=== PATIENT | female | born 1935 | race Caucasian/White ===

== ENCOUNTER 2017-05-29 18:52 | Emergency (ER) | payer MEDICARE, MEDICAID, SELFPAY ==
[2017-05-29 18:53] VITALS: BP 176/87; PULSE 58; RESP 16; TEMP 36.9; O2SAT 98; BMI 27.3
--- NOTE | 2017-05-29 19:07 | XR_ITS ---
XR chest 2V HISTORY: ITS.REASON: chest pain ORDERING PHYSICIAN: Dorinda Garcias MD PATIENT AGE: 82 years COMPARISON: 07/17/2008 FINDINGS: The cardiomediastinal silhouette and pulmonary vascularity are within normal limits. There is evidence of old granulomatous disease. On the lateral view there is a 10 mm nodular opacity noted superior to the diaphragm centrally. This may been present previously possibly related to granuloma. There is hyperinflation consistent with COPD. Mild thoracic curvature convex right. 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 No change with no acute
[2017-05-29 19:32] LABS: Basophils % 0.6 % (0.1-2.0); Eosinophils # 0.2 K/mm3 (0.0-0.4); Eosinophils % 4.2 % (0.1-12.0); Hematocrit 40.6 % (37.0-47.0); Lymphocytes # 1.9 K/mm3 (0.7-4.5); Lymphocytes % 35.5 K/mm3 (10-50); Mean Corpuscular Hemoglobin 30.7 pg (27.0-31.2); Mean Corpuscular Volume 96.1 fl (81-99); Mean Platelet Volume 7.4 fl (7.4-10.4); Monocytes # 0.4 K/mm3 (0.1-1.0); Monocytes % 7.3 % (1.7-9.3); Neutrophils # 2.8 K/mm3 (1.8-7.8); Neutrophils % 52.4 % (37.0-80.0); Platelet Count 340 K/mm3 (142-424); Red Blood Count 4.23 M/mm3 (4.20-5.40); Red Cell Distribution Width 12.6 % (11.5-17.5); White Blood Count 5.3 K/mm3 (4.8-10.8)
[2017-05-29 19:34] LABS: Microscopic, Urine URINE MICROSCOPIC (MICROSCOPIC)
[2017-05-29 19:50] LABS: Alanine Aminotransferase 22 U/L (12-78); Albumin Level 4.5 gm/dL (3.4-5.0); Albumin/Globulin Ratio 1.3 (1.1-1.8); Alkaline Phosphatase 91 U/L (46-116); Anion Gap 13.9 mEq/L (5-15); Aspartate Amino Transferase 20 U/L (15-37); Bilirubin,Total 0.7 mg/dL (0.2-1.0); Blood Urea Nitrogen 11 mg/dL (7-18); CKMB Relative Index 0.7 U/L (0-4.0); Carbon Dioxide 28 mmol/L (21.0-32.0); Chloride 98 mmol/L (98-107); Creatine Kinase 95 U/L (26-192); Creatine Kinase MB 0.7 mg/ml (0.0-3.6); Creatinine Clearance Estimated 42 mL/min (0-300); Creatinine,Serum 1.06 mg/dL (0.55-1.02); Estimated Glomerular Filt Rate 50 ml/min (>60); GFR (African American) 60 ML/MIN (>60); Globulin 3.5 gm/dl (1.3-3.2); Glucose 92 mg/dL (74-106); Sodium 137 mmol/L (136-145); Troponin I < 0.02 ng/ml (0.00-0.06)
--- NOTE | 2017-05-29 19:52 | PC.NURSE ---
lab reported potassium of 2.9 pt nurse aware.
[2017-05-29 20:02] LABS: Potassium 2.9 mmoL/L (3.5-5.1)
[2017-05-29 20:30] LABS: Appearance,Urine CLEAR (Clear); Bilirubin,Urine Negative (Negative); Blood, Urine Negative (Negative); Color,Urine YELLOW (Yellow); Glucose,Urine (UA) Negative (Negative); Ketones,Urine Negative (Negative); Leukocyte Esterase,Urine TRACE (Negative); Nitrate,Urine Negative (Negative); Protein,Urine Negative (Negative); Urobilinogen,Urine 0.2 EU/dl (0.2)
[2017-05-29 20:35] LABS: Amorphous Sediment,Urine Trace /lpf
--- NOTE | 2017-05-29 21:19 | [facility].EDCP ---
ED Disposition Clinical Impression: Hypokalemia Chest pain Qualifiers: Chest pain type: other chest pain Qualified Code(s): R07.89 - Other chest pain Disposition: Home, Self-Care Condition on Discharge: Good Instructions: DI for Atypical Chest Pain, DI for Hypokalemia Additional Instructions: Please take your medications (occluding the potassium) as previously instructed. Please follow-up with a campaign assistant, Dr. Negrito Ordoñez, with 2 days for mandatory follow-up. Referrals: Ac Lopes [Primary Care Provider] - Zi Ordoñez MD [Staff Physician] - Time of Disposition: 00:23 - Critical Care Critical Care Time: No Attestation: On 05/29/17, the high probability of a clinically significant, sudden or life threatening deterioration of the following system(s) required my full and direct attention, intervention and personal management. The time I documented below is in addition to time spent performing reported procedures but includes the following listed in this critical care notation. Medical Decision Making - Medical Records Medical records reviewed: Yes: I reviewed the patient's medical records. Vital Signs: 05/29/17 18:53 05/30/17 00:59 Temperature 98.4 F 98.7 F Temperature Source Oral Oral Pulse Rate 55 L Pulse Rate [Right Radial] 58 L Respiratory Rate 16 14 Blood Pressure 147/74 Blood Pressure [Right Arm] 176/87 Blood Pressure Mean [Right Arm] 116 Blood Pressure Source Automatic Cuff Blood Pressure Source [Right Arm] Automatic Cuff Blood Pressure Position Sitting Blood Pressure Position [Right Arm] Sitting 02 Sat by Pulse Oximetry 98 Oxygen Delivery Method Room Air Room Air - Lab Data Lab results reviewed: Yes: I reviewed the patient's lab results. Lab Results 05/29/17 19:15: WBC 5.3, RBC 4.23, Hgb 13.0, Hct 40.6, MCV 96.1, MCH 30.7, MCHC 32.0, RDW 12.6, Plt Count 340, MPV 7.4, Neut % (Auto) 52.4, Lymph % (Auto) 35.5, Bates % (Auto) 7.3, Eos % (Auto) 4.2, Baso % (Auto) 0.6, Neut # (Auto) 2.8, Lymph # (Auto) 1.9, Bates # (Auto) 0.4, Eos # (Auto) 0.2, Baso # (Auto) 0.0 05/29/17 19:15: PT 10.6, INR 0.98, APTT 25.6 05/29/17 19:15: Sodium 137, Potassium 2.9 L*, Chloride 98, Carbon Dioxide 28, Anion Gap 13.9, BUN 11, Creatinine 1.06 H, Estimated Creat Clear 42, Estimated GFR 50 L, Est GFR ( Amer) 60, Glucose 92, Calcium 10.0, Total Bilirubin 0.7, AST 20, ALT 22, Alkaline Phosphatase 91, Total Creatine Kinase 95, CK-MB (CK-2) 0.7, CK-MB (CK-2) Rel Index 0.7, Troponin I < 0.02, Total Protein 8.0, Albumin 4.5, Globulin 3.5 H, Albumin/Globulin Ratio 1.3 05/29/17 19:28: Urine Color Yellow, Urine Appearance Clear, Urine pH 7.0, Ur Specific [place] 1.010, Urine Protein Negative, Urine Glucose (UA) Negative, Urine Ketones Negative, Urine Blood Negative, Urine Nitrate Negative, Urine Bilirubin Negative, Urine Urobilinogen 0.2, Ur Leukocyte Esterase Trace, Urine WBC 5-10, Ur Squamous Epith Cells 3-5, Ur Renal Epithelial Cell 3-5, Amorphous Sediment Trace 05/29/17 22:57: Total Creatine Kinase 82, CK-MB (CK-2) < 0.5 D, CK-MB (CK-2) Rel Index 0.6, Troponin I < 0.02 Result diagrams: 05/29/17 19:15 05/29/17 19:15 Orders (Tests/Meds): ED MEDICATIONS Discontinued Medications Generic Name Dose Route Start Last Admin Trade Name Scottq PRN Reason Stop Dose Admin Aspirin 324 mg 05/29/17 19:11 05/29/17 19:15 Aspirin 81mg Chewable Tablet PO 05/29/17 19:12 324 mg ONCE ONE Administration Potassium Chloride 60 meq 05/29/17 21:07 05/29/17 21:10 Klor-Con 20meq Tablet PO 05/29/17 21:08 60 meq ONCE ONE Administration - Radiology Data #1 Image(s): Chest Image Reviewed: Yes I reviewed the patient's radiology results, Yes I reviewed the patient's radiology image Preliminary Findings: Normal/NAD - ECG Data Tracing #1 I reviewed this ECG and interpreted as documented below: ECG normal with no acute: arrhythmias, ischemia, conduction abnormalities, chamber hype
[2017-05-29 22:03] LABS: Activated Partial Thrombo Time 25.6 seconds (23.6-34.0); INR 0.98 (0.9-1.1); Prothrombin Time 10.6 seconds (9.4-11.8)
[2017-05-30 00:14] LABS: Creatine Kinase 82 U/L (26-192); Troponin I < 0.02 ng/ml (0.00-0.06)
[2017-05-30 00:15] LABS: CKMB Relative Index 0.6 U/L (0-4.0); Creatine Kinase MB < 0.5 mg/ml (0.0-3.6)
[2017-05-30 00:59] VITALS: BP 147/74; PULSE 55; RESP 14; TEMP 37.1; O2SAT 99
== END 2017-05-30 01:09 | disposition home or self-care (01) ==
PROVIDERS: Emergency Medicine; Emergency Provider Emergency Medicine; Family Provider Internal Medicine; PCP Internal Medicine
DX: R07.89 Other chest pain (principal); E78.5 Hyperlipidemia, unspecified; E87.5 Hyperkalemia; F03.90 Unspecified dementia, unspecified severity, without behavioral disturbance, psychotic disturbance, mood disturbance, and anxiety; I10 Essential (primary) hypertension; Z87.891 Personal history of nicotine dependence; Z79.899 Other long term (current) drug therapy
CPT/HCPCS: 36415; 71046; 80053; 81001; 82550; 82553; 84484; 85025; 85610; 85730; 93005; 99283

== ENCOUNTER → 2020-04-06 12:53 | Outpatient (CLI) | payer MEDICARE, MEDICAID, SELFPAY ==
[2020-04-06 13:07] LABS: Microscopic, Urine URINE MICROSCOPIC (MICROSCOPIC)
[2020-04-06 13:17] LABS: Appearance,Urine CLEAR (Clear); Bilirubin,Urine Negative (Negative); Blood, Urine Negative (Negative); Color,Urine DK YELLOW (Yellow); Glucose,Urine (UA) Negative (Negative); Ketones,Urine Negative (Negative); Leukocyte Esterase,Urine Negative (Negative); Nitrate,Urine Negative (Negative); Protein,Urine TRACE (Negative); Urobilinogen,Urine 0.2 EU/dl (0.2)
== END ==
PROVIDERS: PCP Internal Medicine Adolescent Medicine; Visit Provider Internal Medicine Adolescent Medicine
DX: N39.0 Urinary tract infection, site not specified (principal)
CPT/HCPCS: 81001; 87086

== ENCOUNTER → 2020-05-21 09:44 | Outpatient (CLI) | payer MEDICARE, MEDICAID, SELFPAY ==
[2020-05-21 15:45] LABS: Basophils % 0.6 % (0.1-2.0); Eosinophils # 0.1 K/mm3 (0.0-0.4); Eosinophils % 2.7 % (0.1-12.0); Hematocrit 37.4 % (37.0-47.0); Hemoglobin 11.4 g/dL (12.2-16.2); Lymphocytes # 1.7 K/mm3 (0.7-4.5); Lymphocytes % 39.2 % (10-50); Mean Corpuscular HGB Conc 30.4 g/dL (31.8-35.4); Mean Corpuscular Hemoglobin 31.5 pg (27.0-31.2); Mean Corpuscular Volume 103.6 fl (81-99); Monocytes # 0.4 K/mm3 (0.1-1.0); Monocytes % 9.8 % (1.7-9.3); Neutrophils % 47.7 % (37.0-80.0); Platelet Count 213 K/mm3 (142-424); Red Blood Count 3.61 M/mm3 (4.20-5.40); White Blood Count 4.3 K/mm3 (4.8-10.8)
[2020-05-21 15:54] LABS: Chloride 113 mmol/L (98-107); Sodium 143 mmol/L (136-145)
[2020-05-21 15:56] LABS: Blood Urea Nitrogen 19 mg/dl (7-17); Estimated Glomerular Filt Rate 68 ml/min (>60); GFR (African American) 83 ML/MIN (>60)
[2020-05-21 15:57] LABS: Albumin Level 3.2 g/dl (3.5-5.0); Albumin/Globulin Ratio 1.2 (1.1-1.8); Alkaline Phosphatase 80 U/L (38-126); Aspartate Amino Transferase 16 U/L (14-36); Bilirubin,Total 0.4 mg/dl (0.2-1.3); Carbon Dioxide 27 mmol/L (22.0-30.0); Globulin 2.6 g/dL (1.3-3.2); Glucose 83 mg/dl (74-100); Total Protein,Serum 5.8 g/dl (6.3-8.2)
[2020-05-21 16:08] LABS: Alanine Aminotransferase < 4 U/L (12-78)
== END ==
PROVIDERS: Visit Provider Internal Medicine Adolescent Medicine
DX: I10 Essential (primary) hypertension (principal)
CPT/HCPCS: 36415; 80053; 85025

== ENCOUNTER 2020-07-07 14:57 | Emergency (ER) | payer MEDICARE, MEDICAID, SELFPAY ==
[2020-07-07 14:57] VITALS: BP 132/71; PULSE 77; RESP 18; TEMP 36.7; O2SAT 96; BMI 28.3
--- NOTE | 2020-07-07 15:30 | CT_ITS ---
PROCEDURE: CT HEAD/BRAIN WO CON CLINICAL INDICATION: fall with open wound Injury with pain, laceration to the back of the head COMPARISON: CT HDWO CT HEAD W/O CONTRAST from 02/16/2017 TECHNIQUE: Axial images obtained. All CT scans at the facility use one or more dose reduction, viz: automated exposure control, ma/kV adjustment per patient size (including targeted exams where dose is matched to indication, i.e. head), or iterative reconstruction technique. FINDINGS: There is a small left-sided subdural hematoma measuring approximately 4 mm in thickness involving the left frontal parietal and parietal region. No midline shift or mass effect is evident. Low-density changes are present in the periventricular region consistent with ischemic gliotic change from microvascular disease which appears to have progressed since the previous exam of 02/16/2017 there is some asymmetry in the lateral ventricles right being larger than left. This however was present on the previous study. No calvarial fracture is evident. Soft tissue swelling with a small amount of soft tissue gas is present in the left periorbital and supraorbital region increased soft tissue density is present anterior to the left globe superiorly and may be due to some preseptal hemorrhage. No postseptal hemorrhage is apparent. Facial/orbital CT may provide further evaluation. IMPRESSION: 1. Small acute left subdural hematoma measuring approximately 4 mm in thickness. 2. Left periorbital and supraorbital hematoma with a small amount of preseptal hemorrhage anterior to the globe. Facial/orbital CT may provide further evaluation if clinically warranted 3. Dr. Fallon was notified of the above findings by telephone 07/07/2020 at 4 p.m. Dictated by: Jarad Champion MD 07/07/2020 16:06 Jarad Champion MD in [place] 07/07/2020 16:06
--- NOTE | 2020-07-07 15:32 | [facility].EDFALL ---
ED Disposition Clinical Impression: Subdural hematoma Concussion with loss of consciousness Qualifiers: Encounter type: initial encounter Qualified Code(s): S06.0X9A - Concussion with loss of consciousness of unspecified duration, initial encounter Disposition: Xfer Short-Term Hosp Condition on Discharge: Fair Referrals: Sammy Bang MD [Primary Care Provider] - Time of Disposition: 16:56 - Critical Care Critical Care Time: No Attestation: On 07/07/20, the high probability of a clinically significant, sudden or life threatening deterioration of the following system(s) required my full and direct attention, intervention and personal management. The time I documented below is in addition to time spent performing reported procedures but includes the following listed in this critical care notation. Medical Decision Making - Medical Records Medical records reviewed: Yes: I reviewed the patient's medical records. - Larry Inquiry Pt receiving controlled substance: No Vital Signs: 07/07/20 14:57 Temperature 98.0 F Temperature Source Oral Pulse Rate [Right] 77 Respiratory Rate 18 Blood Pressure [Right Arm] 132/71 Blood Pressure Mean [Right Arm] 91 02 Sat by Pulse Oximetry 96 Oxygen Delivery Method Room Air - Lab Data Lab Results 07/07/20 16:03: WBC 7.8, RBC 4.23, Hgb 13.1, Hct 42.6, MCV 100.8 H, MCH 31.0, MCHC 30.8 L, RDW 13.8, Plt Count 394, MPV 7.9, Neut % (Auto) 68.6, Lymph % (Auto) 25.0, [place] % (Auto) 4.5, Eos % (Auto) 1.4, Baso % (Auto) 0.5, Neut # (Auto) 5.3, Lymph # (Auto) 1.9, [place] # (Auto) 0.4, Eos # (Auto) 0.1, Baso # (Auto) 0.0 07/07/20 16:03: Blood Type O Positive Result diagrams: 07/07/20 16:03 Orders (Tests/Meds): ORDERS Category Date Time Status Type and Screen Stat BBK 07/07/20 16:[address] cervical spine wo con Stat Cat Scan 07/07/20 16:[address] facial bones wo con Stat Cat Scan 07/07/20 16:28 Ordered Basic Metabolic Panel Stat Lab 07/07/20 16:03 Received Urinalysis and Microscopic Stat Lab 07/07/20 15:30 Ordered - CT Data CT Scan: Head Time Received: 16:[address] Reviewed: Yes: I discussed the CT results w/the radiologist Preliminary Findings: Abnormal Findings Narrative: Left-sided subdural hematoma, 4 mm, no shift Medical Decision Narrative: 85yo F evaluated after a fall with presumed loss of consciousness. Patient has significant bleeding from the left voodoo area. Direct pressure was applied proximal to the bleed to slow the progress while 3 simple interrupted sutures were placed. Patient's head was wrapped with a bulky pressure dressing and she was sent to CT scan. She is in no acute distress otherwise. Vital signs are normal. Radiology called to report a left-sided subdural hematoma, 4 mm with no midline shift. [facility] was called for a transfer. They accept the patient at this time, 1617. We will continue the patient's work-up until her ambulance arrives. Fall HPI - General Stated Complaint: Fall Time Seen by Provider: 07/07/20 15:32 Mode of Arrival: EMS - History of Present Illness HPI Narrative: 85yo F brought to the emergency department via EMS after a fall. Patient has no memory of the fall. She is uncertain if she lost consciousness. Patient does not report history of blood thinners. Patient denies any pain. - Related Data Home Medications Medication Instructions Recorded Confirmed ALPRAZolam [Alprazolam Odt] 1 mg PO TID 05/29/17 05/29/17 Atorvastatin Calcium [Atorvastatin 80 mg PO HS 05/29/17 05/29/17 80mg Tab] Metoprolol Tartrate [Lopressor 50 mg PO BID MDD 1-3 tabs daily 05/29/17 05/29/17 50mg tablet] Omeprazole [Omeprazole 40mg 40 mg PO DAILY 05/29/17 05/29/17 Capsule] Potassium Chloride [Pot Chlor 20 meq PO TID 05/29/17 05/29/17 20mEq/15mL Oral Soln UDC] Trazodone HCl 50 mg PO HS 05/29/17 05/29/17 Triamterene/Hydrochlorothiazid 0.5 tab PO DAILY 05/29/17 05/29/17 [Triamterene-H
--- NOTE | 2020-07-07 15:58 | PC.NURSE ---
Dr Champion called head ct findings
--- NOTE | 2020-07-07 16:04 | PC.NURSE ---
calling [email or web address] at this time.
--- NOTE | 2020-07-07 16:18 | CT_ITS ---
PROCEDURE: CT CERVICAL SPINE WO CON CLINICAL INDICATION: fall Neck injury with pain, contusion/abrasion or hematoma, cervical sprain/strain the COMPARISON: CT CT FACIAL BONES WO CON from 07/07/2020 TECHNIQUE: Axial images obtained with sagittal and coronal reformats. All CT scans at the facility use one or more dose reduction, viz: automated exposure control, ma/kV adjustment per patient size (including targeted exams where dose is matched to indication, i.e. head), or iterative reconstruction technique. Axial spiral CT scanning performed of the cervical spine beginning at the base of the skull and continuing to the upper T-spine. 3-D multiplanar reconstruction with 3-D manipulation of volumetric data set in image rendering was completed by the radiologist and/or technologist with the supervision of the radiologist on independent workstation. FINDINGS: There is incomplete fusion of the posterior arch of C1. Slight reversal of the cervical lordosis. Normal alignment. No fracture or dislocation. No lytic or blastic change. Mild multilevel cervical spondylosis. C2-C3: Unremarkable. C3-C4: 3 mm anterolisthesis of C3 with degenerative disc disease. C4-C5: Mild degenerative disc disease. C5-C6: Mild degenerative disc disease. C6-C7: Degenerative disc disease. Mild bilateral foraminal narrowing. C7-T1: 2 mm anterolisthesis of C7. There is levocurvature of the cervical spine and dextrocurvature of the thoracic spine. There is biapical pleural thickening. A 10 mm nodule is present in the lower pole of the left lobe of the thyroid gland. Scattered small cervical lymph nodes are present. There is asymmetric increased density at the base of the tongue on the left with narrowing of the left parapharyngeal fossa region. This may be due to nondistention less apparent on the facial CT. Direct visualization may confirm. IMPRESSION: 1. No acute fracture. 2. Cervical spondylosis as detailed above. 3. Other nonacute findings. Please see above for detail. Dictated by: Jarad Champion MD 07/08/2020 08:37 Jarad Champion MD in [place] 07/08/2020 08:37
--- NOTE | 2020-07-07 16:21 | PC.NURSE ---
[facility] accepted pt.
[2020-07-07 16:23] LABS: Basophils % 0.5 % (0.1-2.0); Eosinophils # 0.1 K/mm3 (0.0-0.4); Eosinophils % 1.4 % (0.1-12.0); Hematocrit 42.6 % (37.0-47.0); Hemoglobin 13.1 g/dL (12.2-16.2); Lymphocytes # 1.9 K/mm3 (0.7-4.5); Mean Corpuscular HGB Conc 30.8 g/dL (31.8-35.4); Mean Corpuscular Volume 100.8 fl (81-99); Mean Platelet Volume 7.9 fl (7.4-10.4); Monocytes # 0.4 K/mm3 (0.1-1.0); Monocytes % 4.5 % (1.7-9.3); Neutrophils # 5.3 K/mm3 (1.8-7.8); Neutrophils % 68.6 % (37.0-80.0); Platelet Count 394 K/mm3 (142-424); Red Blood Count 4.23 M/mm3 (4.20-5.40); Red Cell Distribution Width 13.8 % (11.5-17.5); White Blood Count 7.8 K/mm3 (4.8-10.8)
--- NOTE | 2020-07-07 16:28 | ECG_ITS ---
APPROVED REPORT Exam: Resting ECG HR:98 bpm ECG Measurements Heart Rate 98 AXES TN 152 P 51 QRSd 92 QRS -47 QT 364 T 133 QTc 464 Conclusion Normal sinus rhythm Left anterior fascicular block Left ventricular hypertrophy with repolarization abnormality Abnormal ECG Electronically signed by : Sammy Bang, 07/10/2020 13:59:51
--- NOTE | 2020-07-07 16:28 | CT_ITS ---
PROCEDURE: CT FACIAL BONES WO CON CLINICAL HISTORY: trauma Bleed grass instrumental bleed yes profuse some the walking down obstruct the with clear a.m. was ordered go into the for COMPARISON: CT CT HEAD/BRAIN WO CON from 07/07/2020 TECHNIQUE: Axial images obtained with sagittal and coronal reformats. All CT scans at the facility use one or more dose reduction, viz: automated exposure control, ma/kV adjustment per patient size (including targeted exams where dose is matched to indication, i.e. head), or iterative reconstruction technique. FINDINGS: There is soft tissue swelling in the left supraorbital region and lateral periorbital area with a small amount of soft tissue gas consistent with laceration.. The left globe appears intact. No sinus air-fluid level. No orbital fracture apparent. There is mild preseptal swelling. There is diffuse vascular calcification of the carotid arteries. There is 3 mm anterolisthesis of C3 on C4. Minimal opacification of the mastoid sinuses on both sides. Patient has a known small left-sided subdural hematoma measuring up to 5 mm in thickness in the temporoparietal region. IMPRESSION: The 1. No orbital fracture apparent. 2. Left-sided periorbital hematoma with a small amount of preseptal edema/blood 3. Small left-sided subdural hematoma Dictated by: Jarad Champion MD 07/08/2020 08:28 Jarad Champion MD in [place] 07/08/2020 08:28
--- NOTE | 2020-07-07 16:45 | PC.NURSE ---
REPORT GIVEN TO SANDHYA ONOFRE. CHARGE NURSE AT [facility]
--- NOTE | 2020-07-07 16:55 | PC.NURSE ---
[facility] aware of transfer
[2020-07-07 16:57] LABS: Chloride 106 mmol/L (98-107); Potassium 3.9 mmoL/L (3.5-5.1); Sodium 142 mmol/L (136-145)
[2020-07-07 17:00] LABS: Anion Gap 14.9 mEq/L (5-15); Blood Urea Nitrogen 15 mg/dl (7-17); Carbon Dioxide 25 mmol/L (22.0-30.0); Creatinine Clearance Estimated 41 mL/min (50-200); Estimated Glomerular Filt Rate 47 ml/min (>60); GFR (African American) 57 ML/MIN (>60)
[2020-07-07 17:01] LABS: Calcium 9.7 mg/dl (8.4-10.2); Glucose 138 mg/dl (74-100)
[2020-07-07 18:23] VITALS: BP 137/71; PULSE 81; RESP 20; TEMP 36.8; O2SAT 95
== END 2020-07-07 17:29 | disposition short-term general hospital (02) ==
PROVIDERS: Emergency Provider Family Medicine; PCP Internal Medicine Adolescent Medicine
DX: S06.5X9A Traumatic subdural hemorrhage with loss of consciousness of unspecified duration, initial encounter (principal); S01.81XA Laceration without foreign body of other part of head, initial encounter; W01.0XXA Fall on same level from slipping, tripping and stumbling without subsequent striking against object, initial encounter; Y92.019 Unspecified place in single-family (private) house as the place of occurrence of the external cause; I10 Essential (primary) hypertension; E78.5 Hyperlipidemia, unspecified; Z87.891 Personal history of nicotine dependence; Z79.899 Other long term (current) drug therapy
CPT/HCPCS: 12001; 36415; 70450; 70486; 72125; 80048; 85025; 86850; 93005; 99283